=== PATIENT | male | born 1990 | race Caucasian/White ===

== ENCOUNTER 2017-01-16 15:34 | Emergency (ER) | payer SELFPAY ==
[~2017-01-16] VITALS: Ht 188 cm; Wt 83.8 kg
[~2017-01-16 15:34] MED LIST: NOHOMEMEDS
[2017-01-16 19:37] LABS: ADD MIUA? YES; BILIRUBIN NEGATIVE; BLOOD SMALL; COLOR YELLOW ((YELLOW)); GLUCOSE (STRIP) NEGATIVE; KETONES 80; LEUKOCYTES SMALL; NITRITE NEGATIVE; PROTEIN (STRIP) NEGATIVE; SPECIFIC GRAVITY 1.019 (1.000-1.030); UROBILINOGEN 0.2 MG/DL (0.2-1.0)
[2017-01-16 19:39] LABS: BACTERIA RARE /HPF; EPITHELIAL CELLS RARE /HPF; MUCUS 2+ /LPF; RED BLOOD CELLS 0-5 /HPF (0-5); WHITE BLOOD CELLS 40-50 /HPF (0-5)
[2017-01-16] MEDS ORDERED: PERCOCET 5/31 TABLET PO (19:56)
[2017-01-16] MEDS ORDERED: KEFLEX500 MG PO (19:57)
[2017-01-16 20:17] VITALS: BP 139/95
== END 2017-01-16 20:18 | disposition home or self-care (01) ==
LOC: EME 15:34
PROVIDERS: Physician Assistant Medical
DX: S00.83XA Contusion of other part of head, initial encounter (principal); S50.811A Abrasion of right forearm, initial encounter; S40.211A Abrasion of right shoulder, initial encounter; V86.59XA Driver of other special all-terrain or other off-road motor vehicle injured in nontraffic accident, initial encounter; Z87.442 Personal history of urinary calculi; F17.200 Nicotine dependence, unspecified, uncomplicated
CPT/HCPCS: 70450; 70486; 72125; 73030; 73080; 73090; 81003; 87086; 99281; 99283

== ENCOUNTER 2017-05-01 19:37 | Emergency (ER) | payer SELFPAY ==
[~2017-05-01] VITALS: Ht 188 cm; Wt 83.3 kg
[~2017-05-01 19:37] MED LIST changes: +KEFLEX500 MG PO; +PERCOCET 5/31 TABLET PO
[2017-05-01 21:40] LABS: BASOPHIL COUNT 0.1 K/uL (0-0.1); EOSINOPHIL (%) 0.3 % (0-5); HEMATOCRIT 40.9 % (38.0-50.0); IMMATURE GRANULOCYTE (%) 0.2 % (0.0-0.7); INSTRUMENT ABS NEUTROPHIL CT 5.3 K/uL; LYMPHOCYTE COUNT 3.4 K/uL (1.0-2.8); MCH 25.5 PG (29.0-34.0); MCV 79.6 FL (86-99); MEAN PLAT.VOLUME 10.4 uM^3 (9.0-12.4); MONOCYTE COUNT 0.5 K/uL (0-0.8); NEUTROPHIL (%) 57.2 % (45-76); NEUTROPHIL COUNT 5.3 K/uL (1.8-6.4); PLATELET COUNT 251 K/uL (156-360); RBC DIS.WIDTH-CV 12.7 % (11.8-14.6); RBC DIS.WIDTH-SD 36.2 % (39-53); RED BLOOD COUNT 5.14 M/uL (4.00-5.50); WHITE BLOOD COUNT 9.3 K/uL (4.1-10.2)
[2017-05-01 21:50] LABS: CHLORIDE 106 mEq/L (99-109); POTASSIUM 3.6 mEq/L (3.7-5.4); SODIUM 141 mEq/L (136-147)
[2017-05-01 21:53] LABS: GLUCOSE 90 mg/dL (70-99)
[2017-05-01 21:54] LABS: ANION GAP 12 MEQ/L (2-14); TOTAL BILIRUBIN 0.6 mg/dL (0.0-1.0)
[2017-05-01 21:56] LABS: ALKALINE PHOSPHATASE 72 IU/L (3-129); GFR ESTIMATE (CALCULATED) > 59 mL/min/
[2017-05-01 21:57] LABS: UREA NITROGEN (BUN) 9 mg/dL (9-23)
[2017-05-01 22:00] LABS: LIPASE 11 U/L (1.0-51.0)
[2017-05-01] MEDS ORDERED: PERCOCET 5/31 TABLET PO (22:41)
[2017-05-01] MEDS ORDERED: FLAGYL500 MG PO (22:41)
[2017-05-01] MEDS ORDERED: CIPRO500 MG PO (22:41)
[2017-05-01 22:44] VITALS: BP 117/88
[2017-05-01 22:47] LABS: ADD MIUA? YES; BILIRUBIN NEGATIVE; BLOOD NEGATIVE; COLOR YELLOW ((YELLOW)); GLUCOSE (STRIP) NEGATIVE; KETONES NEGATIVE; LEUKOCYTES TRACE; NITRITE NEGATIVE; PROTEIN (STRIP) NEGATIVE; SPECIFIC GRAVITY 1.015 (1.000-1.030); UROBILINOGEN 0.2 MG/DL (0.2-1.0)
[2017-05-01 23:00] LABS: BACTERIA RARE /HPF; CASTS NONE SEEN /LPF; CRYSTALS NONE SEEN; EPITHELIAL CELLS RARE /HPF; MUCUS NONE SEEN /LPF; RED BLOOD CELLS RARE /HPF (0-5); WHITE BLOOD CELLS 20-30 /HPF (0-5)
== END 2017-05-01 22:46 | disposition home or self-care (01) ==
LOC: EME 19:37
PROVIDERS: Physician Assistant
DX: K52.9 Noninfective gastroenteritis and colitis, unspecified (principal); Q62.11 Congenital occlusion of ureteropelvic junction; R30.0 Dysuria; R31.9 Hematuria, unspecified; K92.1 Melena; Z87.442 Personal history of urinary calculi; F17.200 Nicotine dependence, unspecified, uncomplicated
CPT/HCPCS: 74176; 80053; 81003; 83690; 85025; 99281; 99285

== ENCOUNTER 2017-08-18 13:03 | Emergency (ER) | payer SELFPAY ==
[~2017-08-18] VITALS: Ht 188 cm; Wt 81.9 kg
[~2017-08-18 13:03] MED LIST changes: +CIPRO500 MG PO; +FLAGYL500 MG PO
[2017-08-18 14:08] LABS: HEMOGLOBIN 15.7 G/DL (12.5-16.6); MCH 26.2 PG (29.0-34.0); MCHC 32.7 G/DL (30.0-36.0); PLATELET COUNT 262 K/uL (156-360); RBC DIS.WIDTH-CV 12.7 % (11.8-14.6); RBC DIS.WIDTH-SD 36.4 % (39-53); WHITE BLOOD COUNT 8.5 K/uL (4.1-10.2)
[2017-08-18 14:09] LABS: CHLORIDE 102 mEq/L (99-109); POTASSIUM 3.4 mEq/L (3.7-5.4); SODIUM 140 mEq/L (136-147)
[2017-08-18 14:11] LABS: GLUCOSE 147 mg/dL (70-99)
[2017-08-18 14:12] LABS: TOTAL PROTEIN 8.5 g/dL (6.4-8.3)
[2017-08-18 14:13] LABS: TOTAL BILIRUBIN 1.3 mg/dL (0.0-1.0)
[2017-08-18 14:15] LABS: ALKALINE PHOSPHATASE 81 IU/L (3-129); CREATININE 1.7 mg/dL (0.6-1.3); GFR ESTIMATE (CALCULATED) 52 mL/min/ (58.99-99999)
[2017-08-18 14:16] LABS: UREA NITROGEN (BUN) 17 mg/dL (9-23)
[2017-08-18 14:17] LABS: AST (GOT) 20 IU/L (2-34)
[2017-08-18 14:18] LABS: ALT (GPT) 17 IU/L (3-49)
[2017-08-18] MEDS ORDERED: ATIVAN1 MG PO (14:34)
[2017-08-18 16:55] LABS: AMPHETAMINE PRESUMPTIVE POSITIVE (500 ng/mL); BARBITURATES NEGATIVE (200 ng/mL); BENZODIAZEPINES PRESUMPTIVE POSITIVE (150 ng/mL); BUPRENORPHINE NEGATIVE (10 ng/mL); COCAINE NEGATIVE (150 ng/mL); METHADONE NEGATIVE (200 ng/mL); METHAMPHETAMINE PRESUMPTIVE POSITIVE (500 ng/mL); OPIATES (MORPHINE) PRESUMPTIVE POSITIVE (100 ng/mL); OXYCODONE NEGATIVE (100 ng/mL); PHENCYCLIDINE NEGATIVE (25 ng/mL); PROPOXYPHENE NEGATIVE (300 ng/mL); THC CANNABINOIDS NEGATIVE (50 ng/mL); TRICYCLIC ANTIDEPRESSANTS NEGATIVE (300 ng/mL)
[2017-08-18 17:38] LABS: BENZODIAZEPINES, URINE SCREEN POSITIVE (200 ng/mL)
[2017-08-18 18:36] VITALS: BP 143/86
== END 2017-08-18 18:30 | disposition home or self-care (01) ==
LOC: EME 13:03
PROVIDERS: Emergency Medicine Emergency Medical Services
DX: F13.239 Sedative, hypnotic or anxiolytic dependence with withdrawal, unspecified (principal); R55 Syncope and collapse; R41.82 Altered mental status, unspecified; F17.200 Nicotine dependence, unspecified, uncomplicated; Z87.442 Personal history of urinary calculi
CPT/HCPCS: 70450; 80053; 84999; 85027; 93005; 99281; 99285; J2060; J7040

== ENCOUNTER 2017-10-18 12:20 | Inpatient (IN) | payer SELFPAY ==
[~2017-10-18] VITALS: Ht 154.9 cm; Wt 85.3 kg
[~2017-10-18 12:20] MED LIST changes: +ATIVAN1 MG PO
[2017-10-18 15:41] LABS: HEMATOCRIT 41.9 % (38.0-50.0); HEMOGLOBIN 13.4 G/DL (12.5-16.6); MCH 25.8 PG (29.0-34.0); MCV 80.7 FL (86-99); RBC DIS.WIDTH-CV 13.2 % (11.8-14.6); RBC DIS.WIDTH-SD 38.5 % (39-53); RED BLOOD COUNT 5.19 M/uL (4.00-5.50); WHITE BLOOD COUNT 8.9 K/uL (4.1-10.2)
[2017-10-18 15:51] LABS: ALBUMIN 4.1 g/dL (3.2-4.8)
[2017-10-18 15:52] LABS: CHLORIDE 105 mEq/L (99-109); POTASSIUM 4.5 mEq/L (3.7-5.4); SODIUM 140 mEq/L (136-147)
[2017-10-18 15:54] LABS: GLUCOSE 99 mg/dL (70-99); TOTAL PROTEIN 6.8 g/dL (6.4-8.3)
[2017-10-18 15:56] LABS: TOTAL BILIRUBIN 0.6 mg/dL (0.0-1.0)
[2017-10-18 15:57] LABS: ALKALINE PHOSPHATASE 72 IU/L (3-129)
[2017-10-18 15:58] LABS: CREATININE 1.3 mg/dL (0.6-1.3); GFR ESTIMATE (CALCULATED) > 59 mL/min/ (58.99-99999)
[2017-10-18 15:59] LABS: AST (GOT) 17 IU/L (2-34); UREA NITROGEN (BUN) 14 mg/dL (9-23)
[2017-10-18 16:01] LABS: ALT (GPT) 12 IU/L (3-49)
[2017-10-18 16:15] LABS: PLAT.SUFFICIENCY ADEQUATE; PLATELET COUNT 223 K/uL (156-360)
[2017-10-18 17:27] LABS: AMPHETAMINE NEGATIVE (500 ng/mL); BARBITURATES NEGATIVE (200 ng/mL); BENZODIAZEPINES PRESUMPTIVE POSITIVE (150 ng/mL); BUPRENORPHINE NEGATIVE (10 ng/mL); COCAINE NEGATIVE (150 ng/mL); METHADONE NEGATIVE (200 ng/mL); METHAMPHETAMINE NEGATIVE (500 ng/mL); OPIATES (MORPHINE) PRESUMPTIVE POSITIVE (100 ng/mL); OXYCODONE NEGATIVE (100 ng/mL); PHENCYCLIDINE NEGATIVE (25 ng/mL); PROPOXYPHENE NEGATIVE (300 ng/mL); THC CANNABINOIDS PRESUMPTIVE POSITIVE (50 ng/mL); TRICYCLIC ANTIDEPRESSANTS NEGATIVE (300 ng/mL)
[2017-10-18 17:44] VITALS: BP 118/82
[2017-10-18 17:53] LABS: BENZODIAZEPINES, URINE SCREEN POSITIVE (200 ng/mL)
[2017-10-18 19:10] LABS: MAGNESIUM 2.3 mg/dL (1.3-2.7)
[2017-10-19 07:45] VITALS: BP 106/65
[2017-10-19] MEDS ORDERED: CHLORDIAZEPOXID25 MG PO ×2 (09:05→09:06)
[2017-10-19] MEDS ORDERED: CLONIDINE HCL0.1 MG PO ×2 (09:05→09:06)
== END 2017-10-19 10:01 | disposition home or self-care (01) | DRG 897 ==
LOC: EME 12:20 → EDOF 15:37 → ENRESERV 16:41 → 1WEST 17:11
PROVIDERS: Emergency Medicine
DX: F11.20 Opioid dependence, uncomplicated (principal); F13.20 Sedative, hypnotic or anxiolytic dependence, uncomplicated; F12.90 Cannabis use, unspecified, uncomplicated; F17.200 Nicotine dependence, unspecified, uncomplicated; Z87.442 Personal history of urinary calculi; Z87.11 Personal history of peptic ulcer disease
CPT/HCPCS: 80053; 83735; 84999; 85027; 90839; 99281; 99283